=== PATIENT | male | born 1990 | race Two or more races ===

== ENCOUNTER 2016-10-07 13:02 | Emergency (ER) | payer OTHER ==
[~2016-10-07] VITALS: Ht 177.8 cm; Wt 88.5 kg
[~2016-10-07 13:02] MED LIST: AFRIN NASAL SPR30 ML NASAL; AMOXICILLIN500 MG ORAL; DOXYCYCLINE MO100 MG ORAL; IBUPROFEN600 MG ORAL; NKM
[2016-10-07 13:26] VITALS: BP 136/86
--- NOTE | 2016-10-07 13:31 | Emergency Room Report ---
History of Present Illness General Chief Complaint: Neck Pain Source: Patient Present Illness HPI 26 YO Male presents to the ED c/o left sided neck pain, with cough, sore throat , and fatigue. pt. states he started taking an extra Z-pack that he had 2 days ago. pt. denies fevers or chills, denies trauma or fall. reports seasonal allergies, and childhood asthma. pt. denies ill contacts. reports OROURKE and body aches several days ago before onset of rest of his symptoms. Denies CP, Palpitations, LOC, AMS, dizziness, Changes in Vision, Sensation, paresthesias, or a sudden severe headache. Allergies: Coded Allergies: LEVOFLOXACIN (Verified Allergy, Unknown, 08/15/15) Patient History Past Medical History: see triage record Past Surgical History: none Pertinent Family History: none Immunizations: UTD Reviewed Nursing Documentation: PMH: Agreed, PSxH: Agreed Nursing Documentation-PMH Past Medical History: No Stated History Review of Systems All Other Systems: negative except mentioned in HPI Physical Exam Vital Signs Date Time Temp Pulse Resp B/P Pulse Ox O2 Delivery O2 Flow Rate FiO2 10/07/16 13:05 98.2 76 14 136/86 98 Room Air Sp02 EP Interpretation: reviewed, normal General Appearance: no apparent distress, alert, GCS 15, non-toxic Head: normocephalic, atraumatic Eyes: bilateral eye PERRL, bilateral eye normal inspection ENT: hearing grossly normal, normal pharynx, no angioedema, normal voice, TMs + canals normal, uvula midline, moist mucus membranes, pharyngeal erythema, other - no exudates, mild cobble stone appearance Neck: full range of motion, no meningismus, no bony tend, supple/symm/no masses , tender lateral - left lateral, slightly anterior Respiratory: lungs clear, normal breath sounds, speaking full sentences Cardiovascular #1: regular rate, rhythm, no edema Musculoskeletal: back normal, gait/station normal, normal range of motion, non- tender Neurologic: alert, oriented x3, responsive, motor strength/tone normal, sensory intact, speech normal Psychiatric: judgement/insight normal, memory normal, mood/affect normal Skin: normal color, no rash, warm/dry, well hydrated Lymphatic: other - anterior subparotid LAD bilaterally Medical Decision Making PA Attestation Dr. Schaefer is my supervising Physician whom patient management has been discussed with. Diagnostic Impression: Primary Impression: Viral syndrome Additional Impressions: Sorethroat Neck pain on left side ER Course Pt. presents to the ED c/o left sided neck pain, with cough, sore throat, and fatigue. pt. states he started taking an extra Z-pack that he had 2 days ago. pt. denies fevers or chills, denies trauma or fall. reports seasonal allergies, and childhood asthma. pt. denies ill contacts. reports OROURKE and body aches several days ago before onset of rest of his symptoms. Ddx considered but are not limited to URI, pneumonia, PE, strep pharyngitis, meningitis. post nasal drainage, SAH just to name a few. Vital signs: Pt. is afebrile, the remaining VS are WNL H&PE are most consistent with URI- no meningeal signs, oropharynx is not involved, no evidence of bacterial infection at this time. Pt is non-toxic in appearance no meningeal signs, NAD. ORDERS: none required at this time, the diagnosis is clinical ED INTERVENTIONS: None required at this time. --PT. EDUCATION: Discussed antibiotic resistance with inappropriate prescribing of antibiotics for viral illnesses. Discussed signs and symptoms to indicate viral illness versus bacterial illness. DISCHARGE: At this time pt. is stable for d/c to home. Will provide printed patient care instructions, and any necessary prescriptions. Care plan and follow up instructions have been discussed with the patient prior to discharge. Last Vital Signs Date Time Temp Pulse Resp B/P Pulse Ox O2 Delivery O2 Flow Rate FiO2 10/07/16 13:05 98.2 76 14 136/86 98 Room Air Disposition: HOME, SELF-CARE Condition: Stable Scripts Codeine/Promethazine Hcl* (PROMETHAZINE-CODEINE SYRUP*) 118 Ml Syrup 5 ML ORAL Q6H Y for For Cough, #118 ML 0 Refills Prov: Claudia Garcia P.A. 10/07/16 Acetaminophen* (TYLENOL EXTRA STRENGTH*) 500 Mg Tablet 500 MG ORAL Q6H Y for Mild Pain/Temp > 100.5, #20 TAB 0 Refills Prov: Claudia Garcia P.A. 10/07/16 Patient Instructions: Pharyngitis, [id number] Additional Instructions: Take medications as directed. Follow up with a Primary Care Provider in 3-5 days, even if your symptoms have resolved. --Please review list of primary care clinics, if you do not already have a primary care provider Return sooner to ED if new symptoms occur, or current symptoms become worse. - Please note that this Emergency Department Report was dictated using [employer] operator technology software, occasionally this can lead to erroneous entry secondary to interpretation by the dictation equipment. Claudia Garcia Oct 07, 2016 13:31
[2016-10-07] MEDS ORDERED: TYLENOL EXTRA500 MG ORAL (13:32)
[2016-10-07 13:35] VITALS: BP 136/86
[2016-10-07] MEDS ORDERED: PROMETHAZINE-C118 M1 ORAL (13:39)
== END 2016-10-07 13:50 | disposition home or self-care (01) ==
LOC: EMR 13:33
DX: J02.8 Acute pharyngitis due to other specified organisms (principal); B97.89 Other viral agents as the cause of diseases classified elsewhere; Z88.1 Allergy status to other antibiotic agents
CPT/HCPCS: 99284

== ENCOUNTER 2018-04-03 20:11 | Emergency (ER) | payer OTHER ==
[~2018-04-03] VITALS: Ht 177.8 cm; Wt 86.2 kg
[~2018-04-03 20:11] MED LIST changes: +PROMETHAZINE-C118 M1 ORAL; +TYLENOL EXTRA500 MG ORAL
[2018-04-03 20:28] VITALS: BP 142/87
--- NOTE | 2018-04-03 20:28 | NUR ---
ED Nurse Note: Pt walked in ER and c/o flu like syndrome. Pt has N/V and fever 99.F. Feels tired since 3pm today. Pt is AO [id number], VSS, on room air no distress. BRANDY seen Pt at bedside.
[2018-04-03] MEDS ORDERED: TAMIFLU75 MG ORAL (21:29)
[2018-04-03 21:35] VITALS: BP 138/83
--- NOTE | 2018-04-03 21:35 | NUR ---
ED Nurse Note: Pt cleared DC by BRANDY. Pt is AO x 4times, VSS, on room air no distress. DC and Meds instructions given to Pt, Pt understood well. Belongings given to Pt. ID bend removed. Pt walked out unit with steady gait.
--- NOTE | 2018-04-04 00:47 | Emergency Room Report ---
History of Present Illness General Chief Complaint: Flu Like Symptoms Source: Patient Present Illness HPI 28-year-old M presents ED for evaluation. Complaining of body aches and runny nose and cough 1 day. States he has "severe myalgias". Pain is throbbing, 7 out of 10, nonradiating. States that several members of his family have the flu. In her currently being treated for it. Denies recent travel. Afebrile in triage. No other aggravating relieving factors. Denies any other associated symptoms Allergies: Coded Allergies: LEVOFLOXACIN (Verified Allergy, Unknown, 08/15/15) Patient History Past Medical History: asthma Past Surgical History: none Pertinent Family History: none Social History: Denies: smoking, alcohol use, drug use Immunizations: UTD Reviewed Nursing Documentation: PMH: Agreed; PSxH: Agreed Nursing Documentation-PMH Past Medical History: No History, Except For Hx Asthma: Yes Review of Systems All Other Systems: negative except mentioned in HPI Physical Exam Vital Signs Date Time Temp Pulse Resp B/P (MAP) Pulse Ox O2 Delivery O2 Flow Rate FiO2 04/03/18 20:21 99.9 110 20 130/70 98 Room Air Sp02 EP Interpretation: reviewed, normal General Appearance: no apparent distress, alert, GCS 15, non-toxic Head: normocephalic, atraumatic Eyes: bilateral eye normal inspection, bilateral eye PERRL ENT: hearing grossly normal, normal pharynx, no angioedema, normal voice Neck: full range of motion, supple/symm/no masses Respiratory: chest non-tender, lungs clear, normal breath sounds, speaking full sentences Cardiovascular #1: regular rate, rhythm, no edema Cardiovascular #2: 2+ carotid (R), 2+ carotid (L), 2+ radial (R), 2+ radial (L) , 2+ dorsalis pedis (R), 2+ dorsalis pedis (L) Gastrointestinal: normal bowel sounds, non tender, soft, non-distended, no guarding, no rebound Rectal: deferred Genitourinary: normal inspection, no CVA tenderness Musculoskeletal: back normal, gait/station normal, normal range of motion, non- tender Neurologic: alert, oriented x3, responsive, motor strength/tone normal, sensory intact, speech normal Psychiatric: judgement/insight normal, memory normal, mood/affect normal, no suicidal/homicidal ideation Reflexes: 3+ bicep (R), 3+ bicep (L), 3+ tricep (R), 3+ tricep (L), 3+ knee (R) , 3+ knee (L) Skin: normal color, no rash, warm/dry, well hydrated Lymphatic: no adenopathy Medical Decision Making Diagnostic Impression: Primary Impression: Influenza-like symptoms ER Course Hospital Course 28-year-old M presents to ED complaining of bodyaches + cough Differential diagnoses include: URI, pharyngitis, otitis media, influenza Clinical course Patient placed on stretcher. After initial history physical exam reveals a young male in no acute distress. Bilateral TM unremarkable, no pharyngeal erythema. Lungs clear. No CVA tenderness. clinical findings concerning for influenza. Given that I will treat with Tamiflu Patient agrees with plan. States he has a PMD to follow-up with. safe for discharge with close outpatient follow-up Diagnosis - influenza-like symptoms Stable and discharged home with prescriptions for tamiflu, motrin. drink plenty of fluids. Instructed to followup with PMD. Return to ED if symptoms recur or worsen Last Vital Signs Date Time Temp Pulse Resp B/P (MAP) Pulse Ox O2 Delivery O2 Flow Rate FiO2 04/03/18 20:21 99.9 110 20 130/70 98 Room Air Status: improved Disposition: HOME, SELF-CARE Condition: Stable Scripts Oseltamivir Phosphate (Tamiflu) 75 Mg Capsule 75 MG ORAL TWICE A DAY for 5 Days, CAP Prov: Iglesia Monroy MD 04/03/18 Referrals: [facility],REFERRING (PCP) Patient Instructions: Influenza, Adult, [id number] Iglesia Monroy MD Apr 04, 2018 00:47
== END 2018-04-03 21:35 | disposition home or self-care (01) ==
LOC: EMR 20:59
DX: J11.1 Influenza due to unidentified influenza virus with other respiratory manifestations (principal); J45.909 Unspecified asthma, uncomplicated; Z88.1 Allergy status to other antibiotic agents
CPT/HCPCS: 99282